=== PATIENT | male | born 1960 | race Caucasian/White ===

== ENCOUNTER 2016-06-15 07:19 | Day surgery (SDC) | payer BC ==
[~2016-06-15] VITALS: Ht 172.7 cm; Wt 57.3 kg
[2016-06-15] MEDS ORDERED: CLOP75TA27 PO (09:47)
[2016-06-15] MEDS ORDERED: CITA-104 PO (09:47)
[2016-06-15] MEDS ORDERED: ISOS30TA5 PO (09:47)
[2016-06-15] MEDS ORDERED: GABA300C16 PO (09:47)
[2016-06-15] MEDS ORDERED: ALEN70TA30 PO (09:47)
[2016-06-15] MEDS ORDERED: BACL10TA PO (09:47)
[2016-06-15] MEDS ORDERED: TRAM50TA2 PO (09:47)
[2016-06-15] MEDS ORDERED: ELVI1TAB3 PO (09:47)
[2016-06-15] MEDS ORDERED: BUPR-75 PO (09:47)
[2016-06-15] MEDS ORDERED: ATOR10TA65 PO (09:47)
[2016-06-15] MEDS ORDERED: ACET500C3 PO (09:47)
[2016-06-15 09:50] VITALS: Ht 172.7 cm; Wt 57.3 kg
[2016-06-15] MEDS ORDERED: PROPOFOL 20 ML ONE (11:25)
[2016-06-15] MEDS ORDERED: ESMOLOL 10 ML ONE (11:26)
[2016-06-15] MEDS ORDERED: MIDAZOLAM 1 MG/ML 2 ML INJ ONE (11:26)
[2016-06-15] MEDS ORDERED: FENTAnyl 50 MCG/ML VIAL ONE (11:26)
[2016-06-15 11:28] VITALS: BP 107/64; PULSE 54; RESP 18
[2016-06-15 12:15] VITALS: BP 111/78; PULSE 56; RESP 20
--- NOTE | 2016-06-15 21:17 | GILP ---
DATE OF PROCEDURE: PREOPERATIVE DIAGNOSIS: Screening colonoscopy, rule out colon polyps. POSTOPERATIVE DIAGNOSES: 1. A 2 mm polyp noted in the splenic flexure. This was removed with ____ biopsy forceps. 2. Occasional diverticula noted which are not bleeding. 3. Minimal external hemorrhoids. DESCRIPTION OF PROCEDURE: After informed written consent was obtained, the patient was asked to lie on the left lateral side. Intravenous anesthesia was given by anesthesiologist, Dr. Vega. Whe n the patient became somnolent, Olympus video colonoscope was introduced into the rectum, and scope was advanced all the way to the cecum. Occasional diverticula noted scattered along the colon with no evidence of any diverticulitis. No evidence of bleeding noted. They were small in size. A 2 mm polyp was noted on the fold in the splenic flexure. This was removed with a cold biopsy forceps. The rest of the colon appeared normal. On the way out, minimal external hemorrhoids were noted, and the procedure was terminated. PLAN: Recommend wait for the pathology report and recommend repeat colonoscopy in 10 years. Dictated By: RENATO ARGUETA/YONY Conf#: [id number] DID#: [id number]
== END 2016-06-15 15:47 | disposition home or self-care (01) ==
LOC: GIL 07:19
PROVIDERS: ATTEND Internal Medicine Gastroenterology
DX: Z12.11 Encounter for screening for malignant neoplasm of colon (principal); K63.5 Polyp of colon; K57.90 Diverticulosis of intestine, part unspecified, without perforation or abscess without bleeding; K64.4 Residual hemorrhoidal skin tags; I25.10 Atherosclerotic heart disease of native coronary artery without angina pectoris
CPT/HCPCS: 45380; 88305; J2250; J3010; Z7610